=== PATIENT | female | born 1940 | race Caucasian/White ===

== ENCOUNTER 2024-06-26 05:50 | Day surgery (SDC) | payer OTHER, SELFPAY ==
[2024-06-13 12:36] VITALS: BMI 24.6
[2024-06-13 13:34] LABS: % Basophils 0.4 % (0-2); % Eosinophils 1.7 % (0-6); % Immature Granulocytes 0.3 % (0-0.5); % Lymphocytes 20.2 % (20.5-51.1); % Monocytes 8.7 % (1.7-9.3); % Neutrophils 68.7 % (42.2-75.2); Absolute Eosinophils 0.2 10^3/uL (0-0.7); Absolute Lymphocytes 1.9 10^3/uL (1.2-3.4); Absolute Monocytes 0.8 10^3/uL (0.1-0.6); Absolute Neutrophils 6.3 10^3/uL (1.4-6.5); Hemoglobin 12.6 g/dL (12.0-16.0); Mean Corp Hgb Conc. 33.2 g/dL (33.0-37.0); Mean Corpuscular Hgb 29.9 pg (27.0-31.0); Mean Platelet Volume 9.2 fL (7.4-10.4); Nucleated Red Blood Cells % 0 %; Platelet Count 281 10^3/uL (130-400); Red Blood Cell Count 4.22 10^6/uL (4.20-5.40); Red Cell Dist. Width 12.6 % (11.5-14.5); White Blood Cell Count 9.2 10^3/uL (4.8-10.8)
[2024-06-13 13:40] LABS: ALT (SGPT) 31 U/L (0-35); AST (SGOT) 35 U/L (14-36); Albumin 4.1 g/dl (3.5-5.0); Alkaline Phosphatase 66 U/L (38-126); Blood Urea Nitrogen 25 mg/dl (7-17); Calcium 9.2 mg/dl (8.4-10.2); Carbon Dioxide 27 mmol/L (22-30); Chloride 102 mmol/L (98-107); Estimated Creatinine Clearance 43 ml/min; Glucose 83 mg/dl (70-99); Potassium 4.5 mmol/L (3.5-5.1); Sodium 139 mmol/L (135-145); Total Bilirubin 0.4 mg/dl (0.2-1.3); Total Protein 6.1 g/dl (6.3-8.2); eGFR > 60.00
[2024-06-13 13:42] LABS: INR 1.15; PT 14.5 Sec (11.4-14.6)
[2024-06-26] VITALS (23 sets, daily range): BP systolic 105–160; BP diastolic 43–67; BMI 24.3
--- NOTE | 2024-06-26 07:47 | ITS.CL.ABL ---
Chef Assistant - Ablation
Ablation
Procedure Report:
ELECTROPHYSIOLOGIC STUDY AND POSSIBLE ABLATION
DATE: June 26, 2024
Primary Care Provider: Dr. Cade Henry
INDICATION:
Symptomatic Atrial Fibrillation.
Paroxysmal
HISTORY: See H and P.
Symptomatic AF, poorly controlled with attempted medical therapy
She is recently diagnosed with atrial fibrillation and rapid ventricular rates having then undergone successful cardioversion earlier this year (February 2024) at [facility].� She was also felt to be volume overloaded /decompensated
heart failure�at the side and there is notation that she was diuresed.
I have reviewed an ECG dated March 03, 2024 from [facility] showing atrial fibrillation with a rapid ventricular rate at 111 bpm.� ECG from March 06, 2024 finds sinus rhythm with PACs.
There is report of transesophageal echocardiogram March 03, 2024 finding normal left ventricular systolic function with ejection fraction of 55 to 60%, normal RV size and function, no left atrial appendage thrombus and mild mitral regurgitation.�
Following clearing of the left atrial appendage she underwent cardioversion.
CHADSVASc = 5 (HFpEF, HTN, age, F)
She is treated with apixaban 5 mg twice daily for atrial fibrillation related thromboembolic risk reduction.� She is maintained on Toprol-XL 50 mg daily for rate control.
Additional past medical history is extensive and includes diagnosis of giant cell arteritis, temporal arteritis, chronic vertigo, compression fractures of the lumbar vertebra, diverticulosis, hypertension, irritable bowel syndrome, fatty liver,
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
Also during a recent hospital stay at [facility] there is radiographic finding of irregular patchy consolidation at the right lower lobe as well as multifocal ground glass abnormalities at the left lower lobe and scattered in the
right greater than left upper lobes. Conclusion was that this likely reflects multifocal pneumonia
HAS-BLED:
Age
Uncontrolled HTN
CHADSVASc: 5
CHF, NYHA Class 2, HFpEF
HTN
Age
F Gender
PRESENTING RHYTHM: SR
HISTORY: See H and P.
Symptomatic AF, poorly controlled with attempted medical therapy.
ANTICOAGULATION: Apixaban
'TIME-OUT': called and confirmed.
SEDATION/ANESTHESIA: provided via the anesthesia department using general anesthesia.
PROCEDURE:
Ultrasound Guidance performed by ct was utilized for femoral venous Vascular Access b/l.
A decapolar CS catheter was placed within the CS for mapping and pacing.
The intracardiac ultrasound catheter was positioned in the RA for continuous intracardiac ultrasound imaging.
Heparin bolus and infusion to target ACT at 300 -350 seconds was administered. Transseptal puncture was performed. This entailed advancing a sheath with dilator into the superior vena cava and withdrawing both (monitoring intracardiac ultrasound,
fluoroscopy and tip pressure) with the tip oriented toward the atrial septum. The fossa ovalis was engaged (indicated by sudden displacement of the sheath tip as well as tenting of the fossa seen on intracardiac ultrasound).
AcQCross transseptal system was used. Left atrial catheter position was confirmed by echocardiographic imaging, pressure monitoring (LA mean pressure [ ] mm Hg) and fluoroscopy. The sheath was advanced over the dilator and positioned in the left
atrium.
the multipolar mapping catheter was initially positioned through the transseptal sheath for high density mapping.
Geometry and voltage mapping was performed using the Copytele multipolar grid catheter. Navex was utilized for three-dimensional electroanatomical mapping.
A 3-D map was created using Navex. A 3-D reconstructed CT image was compared to the 3-D Navex map to assist in anatomic evaluation, mapping and ablation.
The Qyuki Pulse Select PFA catheter and system was used for cardiac ablation. Catheter positioning was guided and confirmed using both I.C.E. and fluoroscopy.
PV isolation approach was used to electrically isolate each PV ostia LSPV, LIPV, RSPV, RIPV.
Additional energy applications/additional ablation set was required to accomplish both wide area circumferential ablation around each of the pulmonary vein sets and .
Remapping with the Nevarez multipolar grid catheter found that all PVPs were eliminated at each vein demonstrating entrance block. Also pacing from the multipolar mapping catheter around the the circumference of the ostia was performed at 10 ma and
2.0 msec output to assess for exit block. This demonstrated electrical isolation at each of the pulmonary vein ostia LSPV, LIPV, RSPV, RIPV and a wide area circumferential fashion as well as bidirectional block at the posterior wall of the left
atrium..
Programmed electrical stimulation was then performed and there were no inducible arrhythmias.
I.C.E. :
Pre-Ablation Post-Ablation
LVEF: 50 % 50 %
WMA: none none
Pericardial effusion: trace post trace post
COMPLICATIONS:
None
SUMMARY:
- Mapping and ablation to isolate the PVs
- Additional AF ablation set after PVI.
- 3-D Electroanatomical Mapping
- Intracardiac Ultrasound
Post ablation, I discussed today's findings and results with the patient's [id number], Gracy.
RECOMMENDATIONS:
- Observe in monitored bed.
- Maintain oral anticoagulation.
- Office visit with me in 3 months.
Copy to: Dr. Cade Henry
[2024-06-26 08:39] LABS: ACT-LR - POC 284 Seconds (116-155)
[2024-06-26 09:00] LABS: ACT-LR - POC 303 Seconds (116-155)
--- NOTE | 2024-06-26 13:45 | PTCARENOTE ---
Figure of 8 suture clipped without incident, Pt michelle well.
--- NOTE | 2024-06-26 15:42 | PTCARENOTE ---
Pt assisted OOB to BR, while in BR, her R femoral vein site bled. Pt assisted back to bed and manual pressure held x 10 min. Pt had small quarter sized hematoma that was pressed out. New dry sterile dsg and tegaderm applied, dsg remains D+I, Brisa
Vasiliy aware.
--- NOTE | 2024-06-26 16:46 | CM ---
spoke to pt in room, she is prev indep, lives alone in an apt with no steps to enter. she denies any dc planning needs. plan is for dc to home when medically stable.
[2024-06-26] MEDS: ANESTHETIC LOZENGE 1 LOZENGE PO (16:47)
[2024-06-26] MEDS: TYLENOL 650 MG PO (16:52)
[2024-06-26] MEDS: ELIQUIS 5 MG PO (18:27)
[2024-06-26] MEDS: TOPROL XL 50 MG PO (18:27)
[2024-06-26] MEDS: NAMENDA 5 MG PO (19:25)
--- NOTE | 2024-06-26 21:03 | PTCARENOTE ---
R groin is c/d/i. No hematoma/bleeding noted. Pt has been OOB w/ RN assist. No complaints at this time. Tele- SR. HR 70-80s. Currently in bed; call alyson w/in reach.
[2024-06-27 00:08] VITALS: BMI 24.3
[2024-06-27 02:42] VITALS: BP 110/48
[2024-06-27 03:13] LABS: Hematocrit 33.5 % (37.0-47.0); Hemoglobin 11.4 g/dL (12.0-16.0); Mean Corpuscular Hgb 30.1 pg (27.0-31.0); Mean Corpuscular Volume 88.4 fL (81.0-99.0); Mean Platelet Volume 9.1 fL (7.4-10.4); Platelet Count 233 10^3/uL (130-400); Red Blood Cell Count 3.79 10^6/uL (4.20-5.40); Red Cell Dist. Width 12.7 % (11.5-14.5); White Blood Cell Count 10.2 10^3/uL (4.8-10.8)
[2024-06-27 03:35] LABS: Blood Urea Nitrogen 39 mg/dl (7-17); Calcium 9.6 mg/dl (8.4-10.2); Carbon Dioxide 27 mmol/L (22-30); Chloride 103 mmol/L (98-107); Estimated Creatinine Clearance 43 ml/min; Glucose 102 mg/dl (70-99); Magnesium 1.9 mg/dl (1.6-2.3); Potassium 4.4 mmol/L (3.5-5.1); Sodium 140 mmol/L (135-145); eGFR > 60.00
[2024-06-27 07:47] VITALS: BP 99/56
[2024-06-27] MEDS: NAMENDA 5 MG PO (07:51)
[2024-06-27] MEDS: PROTONIX 40 MG PO (07:51)
[2024-06-27] MEDS: ELIQUIS 5 MG PO (07:52)
--- NOTE | 2024-06-27 08:13 | W.PN.CARDCBS ---
Addendum entered and electronically signed by Satish Kingston MD 06/27/24 09:42:
Patient seen and examined
Sinus rhythm on telemetry
Exam:
Bilateral groins clean dry and intact
Telemetry sinus rhythm
Remainder of examination per [facility]LE[employer] REP note
83 y/o, recurrent PAF with recent episode of syncope 05/2024, LE edema, fatigue. Failed CVN. [id number]=4, maintained on eliquis.
Presented to EP lab, s/p PFA.
IMPRESSION:
PAF
S/P PFA, 06/26/24
syncope
HTN
HLD
GERD/IBS
Cognitive deficit/memory loss
Former tobacco
PLAN:
Tele- NSR w/PACs, 70s
groin site stable
resume eliquis last evening
continue metoprolol
BP low this morning 90-100s- hold diovan today and ok to resume in AM
followup with Dr. Fitzgerald in [address] Chavez thereafter
home today
Original Note:
Today's Communication / Plan
-
eliquis
hold diovan this morning for low BPs, resume in AM at home
home today
followup as scheduled
Impression / Plan
-
PCP: MD Carl
CDY: Maulik Chavez MD
83 y/o, recurrent PAF with recent episode of syncope 05/2024, LE edema, fatigue. Failed CVN. [id number], maintained on eliquis.
Presented to EP lab, s/p PFA.
IMPRESSION:
PAF
S/P PFA, 06/26/24
syncope
HTN
HLD
GERD/IBS
Cognitive deficit/memory loss
Former tobacco
PLAN:
Tele- NSR w/PACs, 70s
groin site stable
resume eliquis last evening
continue metoprolol
BP low this morning 90-100s- hold diovan today and ok to resume in AM
followup with Dr. Fitzgerald in [address] Chavez thereafter
home today
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
Subjective
Date of Service: June 27, 2024
denies cp/palps/dyspnea
oob ambulating
groin site with mild ooze post procedure but now stable
Objective
Labs:
06/27/24 02:59
06/27/24 02:59
Labs
Hgb 11.4 g/dL (12.0-16.0) L 06/27/24 02:59
Hct 33.5 % (37.0-47.0) L 06/27/24 02:59
Plt Count 233 10^3/uL (130-400) 06/27/24 02:59
PT 14.5 Sec (11.4-14.6) 06/13/24 12:53
INR 1.15 06/13/24 12:53
Sodium 140 mmol/L (135-145) 06/27/24 02:59
Potassium 4.4 mmol/L (3.5-5.1) 06/27/24 02:59
BUN 39 mg/dl (7-17) H 06/27/24 02:59
Creatinine 0.8 mg/dL (0.6-1.0) 06/27/24 02:59
Glucose 102 mg/dl (70-99) H 06/27/24 02:59
Vital Signs and I&O:
Vital Signs
Temp Pulse Resp BP Pulse Ox
97.9 F 80 16 99/56 93
06/27/24 07:49 06/27/24 07:49 06/27/24 07:49 06/27/24 07:47 06/27/24 07:49
Vital Signs
Temp Pulse Resp BP Pulse Ox
97.9 F 80 16 99/56 93
06/27/24 07:49 06/27/24 07:49 06/27/24 07:49 06/27/24 07:47 06/27/24 07:49
Intake & Output
06/25/24 06/26/24 06/27/24 06/28/24
06:59 06:59 06:59 06:59
Intake Total 1300 / 1300
Balance 1300 / 1300
Physical Exam
Physical Exam
AAOx3, MAEE 5/5
RRR S1 S2 no murmurs
CTA bilat, non labored
soft abd, + bs
right groin site without ht/bleeding, non tender
bilat extremities w/palpable distal pulses, no edema
--- NOTE | 2024-06-27 08:42 | PTCARENOTE ---
R groin dsg remains D+I. + DP pulses bilat. Pt denies pain. She feels well this morning and is anxious for D/C. BP 99/56 this morning, Valsartan 160 mg not given, Brisa Amanda aware. Pt in SR on monitor.
[2024-06-27] MEDS: IMODIUM PO (09:14)
[2024-06-27] MEDS: IMODIUM 4 MG PO (09:41)
--- NOTE | 2024-06-27 11:50 | W.DS.TRANS ---
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
-
Discharge Instructions:
Sleep Apnea Risk Low
Discharge Diagnosis/Procedures AFib, s/p ablation
Diet Low Cholesterol
Driving Restrictions No driving for 24 hours
Instructions:
Stand-Alone Forms: DC Instructions- Cath/EP Lab
Changes to Home Medications: No
Discharge Medications:
DC Medications w/original date entered in [employer]
apixaban 5 mg tablet (Eliquis) 5 mg PO BID 06/07/24
ascorbic acid (vitamin C) 1,000 mg tablet (Vitamin C) 1,000 mg PO DAILY 06/07/24
cholecalciferol (vitamin D3) 125 mcg (5,000 unit) tablet (Vitamin D3) 125 mcg PO DAILY 06/07/24
loperamide 2 mg tablet 4 mg PO DAILY 06/07/24
memantine 5 mg tablet 5 mg PO BID 06/07/24
metoprolol succinate 50 mg tablet,extended release 24 hr 50 mg PO QPM 06/07/24
multivitamin 1 tab PO DAILY 06/07/24
pantoprazole 40 mg tablet,delayed release 40 mg PO DAILY 06/07/24
valsartan 160 mg tablet 160 mg PO DAILY 06/07/24
Home Medication Changes
Pending Results: No
== END 2024-06-27 10:56 | disposition home or self-care (01) ==
LOC: CATH 05:50
PROVIDERS: Nurse Practitioner; ATTENDING PHYSICIAN Internal Medicine Cardiovascular Disease; FAMILY PHYSICIAN Student in an Organized Health Care Education/Training Program; OTHER PHYSICIAN Internal Medicine Cardiovascular Disease
DX: I48.0 Paroxysmal atrial fibrillation (principal); K21.9 Gastro-esophageal reflux disease without esophagitis; Z87.891 Personal history of nicotine dependence; K58.9 Irritable bowel syndrome, unspecified; I11.0 Hypertensive heart disease with heart failure; Z79.899 Other long term (current) drug therapy; Z79.01 Long term (current) use of anticoagulants; E78.2 Mixed hyperlipidemia; K76.0 Fatty (change of) liver, not elsewhere classified; I49.1 Atrial premature depolarization; Z88.0 Allergy status to penicillin; Z90.49 Acquired absence of other specified parts of digestive tract; Z86.018 Personal history of other benign neoplasm
CPT/HCPCS: C1769; C1892; C1730; C1894; 36415; 75572; 80048; 80053; 83735; 85025; 85027; 85347; 85610; 86850; 86900; 86901; 93005; 93656; 93657; C1732; C1733; Q9967